=== PATIENT | female | born 1970 | race Caucasian/White ===

== ENCOUNTER 2023-06-25 05:34 | Day surgery (SDC) | payer BC ==
[2023-06-15 12:34] LABS: BILIRUBIN,URINE NEGATIVE (Neg); COLOR,URINE YELLOW (Yellow); GLUCOSE, URINE NEGATIVE (Neg); KETONES,URINE NEGATIVE (Neg); LEUKOCYTE ESTERASE ,URINE NEGATIVE (Neg); NITRITES, URINE NEGATIVE (Neg); OCCULT BLOOD,URINE NEGATIVE (Neg); PROTEIN,URINE NEGATIVE (Neg); UROBILINOGEN,URINE 0.2 E.U/dL (0.2-1.0)
[2023-06-15 12:37] LABS: BASOPHILS # (AUTO) 0.1 X10'3 (0-0.2); BASOPHILS % (AUTO) 0.8 % (0-1); EOSINOPHILS # (AUTO) 0.2 X10'3 (0-0.9); EOSINOPHILS % (AUTO) 1.6 % (0-6); LYMPHOCYTES # (AUTO) 2.3 X10'3 (1.1-4.8); LYMPHOCYTES % (AUTO) 17.7 % (21-51); MEAN CORPUSCULAR HEMOGLOBIN 34.2 PG (27.0-31.0); MEAN CORPUSCULAR HGB CONC 33.6 g/dL (33.0-36.5); MEAN CORPUSCULAR VOLUME 101.8 FL (78-98); MEAN PLATELET VOLUME 8.5 FL (7.4-10.4); MONOCYTES # (AUTO) 1.6 X10'3 (0-0.9); NEUTROPHILS # (AUTO) 8.8 X10'3 (1.8-7.7); NEUTROPHILS % (AUTO) 67.9 % (42-75); PRE OP HEMATOCRIT 45.1 % (35.0-45.0); PRE OP HEMOGLOBIN 15.2 g/dL (12.0-16.0); PRE OP PLATELET COUNT 350 X10'3 (140-440); RED BLOOD COUNT 4.43 X10'6 (4.20-5.60); RED CELL DISTRIBUTION WIDTH 12.5 % (11.5-14.5)
[2023-06-15 12:39] LABS: UA COLLECTION TYPE CLN CATCH MIDSTREAM
[2023-06-15 12:41] LABS: CLARITY,URINE SLIGHTLY CLOUDY (Clear)
[2023-06-15 12:42] LABS: SQUAMOUS EPITHELIAL CELL,UR MANY /LPF (FEW)
[2023-06-15 12:43] LABS: BACTERIA,URINE FEW /HPF (Neg); RBC,URINE 0-2 /HPF (0-2); TRANSITIONAL EPI CELLS,URINE FEW /HPF
[2023-06-15 12:49] LABS: ALBUMIN 3.9 G/DL (3.4-5.0); ALBUMIN/GLOBULIN RATIO 0.8 (1.1-1.5); ALKALINE PHOSPHATASE 68 IU/L (46-116); BLOOD UREA NITROGEN 5 MG/DL (7-18); BUN/CREATININE RATIO 6.9 (10.0-20.0); CALCIUM 9.6 MG/DL (8.5-10.1); CHLORIDE 92 MMOL/L (99-107); CREATININE 0.72 MG/DL (0.40-0.90); PRE OP ALT 55 U/L (30-65); PRE OP ANION GAP 7 (8-16); PRE OP AST 52 U/L (10-37); PRE OP BILIRUB, TOTAL 0.7 MG/DL (0.0-1.0); PRE OP GLUCOSE 93 MG/DL (70-104); TOTAL CARBON DIOXIDE 28.8 MMOL/L (24-32); TOTAL PROTEIN 8.5 G/DL (6.4-8.2); eGFR 84 ML/MIN
[2023-06-15 12:55] LABS: PRE OP SODIUM 128 MMOL/L (135-145)
[~2023-06-25] VITALS: Ht 160 cm; Wt 77.1 kg
[2023-06-25] VITALS (10 sets, daily range): BP systolic 152–177; BP diastolic 79–107; PULSE 73–98; RESP 14–16; TEMP 98.2; O2SAT 93–97
[~2023-06-25 05:34] MED LIST: NAPR220T67 PO; cefazolin 2gm/D5W 100mL 100 ML IV ONE; famotidine 20mg tablet PO ONE; ringers solution, lacted 1,000 ML IV SCH; vancomycin 1,500 MG in NS 300ml IV soln IV ONE
[2023-06-25 06:58] LABS: ISTAT ANION GAP 12 (8-12); ISTAT BUN < 3 mg/dL (7-18); ISTAT CL 102 mmol/L (99-107); ISTAT CREATININE 0.6 mg/dL (0.6-1.1); ISTAT GLUCOSE 142 mg/dL (70-104); ISTAT Hct 44 %PCV (35-45); ISTAT IONIZED CALCIUM 1.11 mmol/L (1.03-1.32); ISTAT K 4.2 mmol/L (3.5-5.1); ISTAT NA 137 mmol/L (135-145); ISTAT TOTAL CO2 23 mmol/L (24-32); ISTAT eGFR > 90 ML/MIN
[2023-06-25] MEDS: midazolam 1 mg/ML 2ml injection IV ONE ×2 (07:10→07:53)
[2023-06-25] MEDS ORDERED: midazolam 1 mg/ML 2ml injection ONE (07:14)
[2023-06-25] MEDS ORDERED: sevoflurane 250ml liquid IH ONE (07:16)
[2023-06-25] MEDS ORDERED: fentaNYL /PF 50mcg/ml 5ml ampule ONE (07:21)
[2023-06-25] MEDS ORDERED: ondansetron/PF 4mg/2ml inj ONE (07:59)
[2023-06-25] MEDS ORDERED: LIDOcaine 2% (20mg/ml) 5ml vial ONE (07:59)
[2023-06-25] MEDS ORDERED: 0.9 % SODIUM CHLORIDE 10 ML VIAL ONE (07:59)
[2023-06-25] MEDS ORDERED: dexamethasone sod phosphate 4mg/ml inj. ONE (07:59)
[2023-06-25] MEDS ORDERED: ROPIVAcaine 0.5% (5mg/ml) 30ml vial ONE (07:59)
[2023-06-25] MEDS ORDERED: propofol inj 20 ML IV ONE (07:59)
[2023-06-25] MEDS ORDERED: ROPIVAcaine 0.2% (10 MG/5 ML) BOLUS INJECTION POPLITEAL PRN (09:30)
[2023-06-25] MEDS ORDERED: meperidine/PF 25mg/ml syringe IV PRN ×3 (09:30)
[2023-06-25] MEDS ORDERED: acetaminophen 1,000mg/100ml IV 100 ML IV ONE (09:30)
[2023-06-25] MEDS ORDERED: morphine 2 MG/ML inj. syringe IV PRN (09:30)
[2023-06-25] MEDS ORDERED: labetalol 20mg/4ml (5mg/ml) syringe IV PRN (09:30)
[2023-06-25] MEDS ORDERED: proCHLORperazine 10 MG/2 ml inj IV PRN (09:30)
[2023-06-25] MEDS ORDERED: ringers solution, lacted 1,000 ML IV SCH (09:30)
[2023-06-25] MEDS ORDERED: hydrALAZINE 20mg/ml inj. IV PRN (09:30)
[2023-06-25] MEDS ORDERED: ROPIVAcaine 0.2%/PF PUMP/bolus 545 ML POPLITEAL SCH (09:30)
[2023-06-25] MEDS ORDERED: ondansetron/PF 4mg/2ml inj IV PRN (09:30)
[2023-06-25] MEDS ORDERED: morphine 4 MG/ML inj SYRINge IV PRN (09:30)
[2023-06-25] MEDS ORDERED: bacitracin 15gm ointment TP ONE ×2 (09:53→10:04)
== END 2023-06-25 11:35 | disposition home or self-care (01) ==
LOC: PAS 05:34
PROVIDERS: ATTEND Podiatrist Foot & Ankle Surgery
DX: M25.571 Pain in right ankle and joints of right foot (principal); M19.071 Primary osteoarthritis, right ankle and foot; Z79.1 Long term (current) use of non-steroidal anti-inflammatories (NSAID); Z79.2 Long term (current) use of antibiotics; Z79.82 Long term (current) use of aspirin; Z79.891 Long term (current) use of opiate analgesic; Z79.899 Other long term (current) drug therapy; Z96.661 Presence of right artificial ankle joint; Z98.891 History of uterine scar from previous surgery; Z98.890 Other specified postprocedural states; Z80.9 Family history of malignant neoplasm, unspecified
CPT/HCPCS: 27703; 28725; 28740; 36415; 64450; 73600; 80047; 80053; 81001; 82948; 85025; 87081; A6223; C1713; C1776; J0131; J0690; J1100; J2175; J2250; J2405; J2704; J2795; J3010; J3370; J3490; J7030; J7120; Z7506; Z7508; Z7512; 76000; A4618; A6449; A7000; C1769